=== PATIENT | female | born 2005 | race Caucasian/White ===

== ENCOUNTER 2023-03-23 20:15 | Emergency (ER) | payer OTHER ==
[~2023-03-23] VITALS: Ht 165.1 cm; Wt 67.9 kg
[2023-03-23 22:01] VITALS: BP 132/74; TEMP 98; O2SAT 100
== END 2023-03-23 22:02 | disposition home or self-care (01) ==
LOC: M ED 20:15
DX: N63.11 Unspecified lump in the right breast, upper outer quadrant (principal); R07.89 Other chest pain; Z80.3 Family history of malignant neoplasm of breast

== ENCOUNTER 2023-04-22 18:36 | Emergency (ER) | payer OTHER ==
[~2023-04-22] VITALS: Ht 165.1 cm; Wt 68.7 kg
[2023-04-22 20:39] VITALS: BP 130/70; TEMP 98.6; O2SAT 100
== END 2023-04-22 22:21 | disposition home or self-care (01) ==
LOC: M ED 18:36
DX: T22.00XA Burn of unspecified degree of shoulder and upper limb, except wrist and hand, unspecified site, initial encounter (principal); T21.00XA Burn of unspecified degree of trunk, unspecified site, initial encounter; T20.00XA Burn of unspecified degree of head, face, and neck, unspecified site, initial encounter; W89.1XXA Exposure to tanning bed, initial encounter; Y92.9 Unspecified place or not applicable; Y93.89 Activity, other specified; Y99.9 Unspecified external cause status

== ENCOUNTER 2023-10-09 20:19 | Outpatient (CLI) | payer OTHER ==
[~2023-10-09] VITALS: Ht 165.1 cm; Wt 70.2 kg
[2023-10-09 20:38] VITALS: BP 119/75
[2023-10-09] MEDS: FIORICET TAB PO ONE (21:32)
== END 2023-10-09 22:37 | disposition home or self-care (01) ==
LOC: M LDO 20:19
PROVIDERS: ATTEND Advanced Practice Midwife
DX: O26.892 Other specified pregnancy related conditions, second trimester (principal); R51.9 Headache, unspecified; Z3A.23 23 weeks gestation of pregnancy
CPT/HCPCS: 59025; G0463